=== PATIENT | male | born 1935 | race Caucasian/White ===

== ENCOUNTER 2022-09-22 12:40 | Outpatient (CLI) | payer MEDICARE, BC, SELFPAY ==
--- NOTE | 2022-09-22 13:00 | CRLHL7_ITS ---
For Patients: As a result of the Century Cures Act, medical imaging exams and procedure reports are released immediately into your electronic medical record. You may view this report before your referring provider. If you have questions, please contact your health care provider. DATE: 09/22/2022. CLINICAL HISTORY: Meningioma. TECHNIQUE: Multi-sequence, multiplanar MRI examination of the brain was performed. Contrast: 15mL of Dotarem was administered intravenously. COMPARISON: Brain MRI dated 03/16/2022. FINDINGS: There has been very slight interval increased size of the lobulated enhancing extra-axial mass along the left anterior interhemispheric falx, currently measuring 3.0cm x 5.3cm x 2.7cm (CC x AP x TR), previously 3.0cm x 5.1cm x 2.6cm when measured similarly. Similar degree of mass effect upon the adjacent brain parenchyma and with at least moderate degree of surrounding vasogenic edema within the left frontal lobe, slightly progressed from the comparison examination. The mass again abuts the adjacent superior sagittal sinus with invasion not definitively excluded. [id number] generalized parenchymal volume loss with resulting prominence of cerebral sulci and the ventricular system. Patchy T2/FLAIR hyperintense signal abnormality in the white matter of both hemispheres likely reflects sequela of chronic small vessel ischemia. No acute intracranial hemorrhage or extra-axial fluid collection. Ill-defined patchy enhancement in the lit may reflect a capillary telangiectasia appears is a venous structure such as a developmental venous anomaly. 4mm enhancing structure within the right internal auditory canal, not significantly changed, may reflect a vestibular schwannoma. Thinning of the ocular lenses. Mucosal thickening of the ethmoid air cells. The mastoid air cells are clear. The calvarium is unremarkable. IMPRESSION: 1. Very slight interval growth of the presumed meningioma along the left anterior interhemispheric falx with mild progression of associated moderate vasogenic edema in the left frontal lobe. The lesion abuts the wall of the adjacent superior sagittal sinus without definitive invasion. 2. 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 3. Senescent changes including generalized parenchymal volume loss and findings most consistent with sequela of chronic small vessel ischemia. Dictated by Randall Cook MD @ 09/22/2022 9:40:37 PM (Electronically Signed)
== END 2022-09-22 12:41 | disposition home or self-care (01) ==
LOC: MRI 12:47
PROVIDERS: Visit Provider Radiology Radiation Oncology
DX: D32.9 Benign neoplasm of meninges, unspecified (principal)
CPT/HCPCS: 70553; A9575